=== PATIENT | female | born 1960 | race Caucasian/White ===

== ENCOUNTER → 2019-03-18 | Outpatient (CLI) | payer BC ==
--- NOTE | 2019-03-18 16:48 | CONS ---
CONSULTATION REASON FOR CONSULTATION: Sleep apnea. This is a 58-year-old female patient, referred to me for evaluation of obstructive sleep apnea. The patient lives in [place] and she works in [place]. 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 She is having difficulties in maintaining good sleep quality. She goes to bed around 10 p.m., wakes up at 7 a.m. in the morning. She feels that she is not sleeping more than 4 hours. Her sleep quality is poor and she has snoring and she quits breathing at night, as she has been told by her bed partner. She has been waking up tired and sleepy during the day, and she has problems with memory and concentration. Her current [place] score is 20. No recent weight gain. No substance abuse. She has a history of depression; currently it is inactive and it is well treated. No sleep paralysis. No hallucinations. No cataplexy. No parasomnia. No substance abuse. She is a chronic smoker. PAST MEDICAL HISTORY: 1. Depression. 2. Anxiety. 3. Hyperlipidemia. 4. Sciatica. 5. Stress urinary incontinence. 6. Reflux. SURGICAL HISTORY: Surgical history includes: 1. Carpal tunnel release. 2. Cholecystectomy. 3. Hysterectomy. DRUG ALLERGIES: PEANUTS. OUTPATIENT MEDICATION LIST: Outpatient medication list includes: 1. Gabapentin 100 mg p.o. daily. 2. Baclofen 10 mg p.o. daily. 3. Nexium 20 mg p.o. daily. 4. Rajni aspirin 81 mg p.o. daily. 5. Claritin 10 mg p.o. daily. 6. Pravastatin 10 mg p.o. daily. 7. Lexapro 20 mg p.o. daily. 8. Oxybutynin 20 mg p.o. daily. 9. BuSpar 10 mg p.o. t.i.d. SOCIAL HISTORY: The patient smokes one pack of cigarettes a day. Twenty pack/year smoking history is present. No history of alcoholism. No history of IV drugs. FAMILY HISTORY: Positive for CHF in mother. [place] in the father. REVIEW OF SYSTEMS: Fourteen-point review of systems was done. Positive findings were all mentioned above in the history of present illness. The patient has no history of any motor vehicle accident because of feeling drowsy or sleepy. She is able to drive long distances without having to fall asleep. She gets very tired, however. She sleeps on her side and stomach. She watches TV in the bedroom. She may take a nap after coming back from work at around 4 p.m.; however, this is not a common occurrence. She wakes up and her sleep is quite fragmented. No unusual behavior or movements at nighttime. PHYSICAL EXAMINATION: VITAL SIGNS: BP is 124/76, pulse 96, respirations 16, temperature 98.2, saturation 97% on room air. Height is 5 feet 4 inches, weight 197, BMI 32.7. Neck size is 15 inches. GENERAL APPEARANCE: Calm, comfortable. HEAD: Atraumatic normocephalic. NECK: Supple. There is no JVD. No goiter or neck mass. Mallampati class IV. LUNGS: Clear to auscultation. HEART: Heart sounds are regular rate and rhythm. Normal S1, S2. No S3, S4. No murmurs. ABDOMEN: Soft, nontender. No organomegaly. EXTREMITIES: No edema. No cyanosis or clubbing. NEUROLOGIC: She is awake and alert. No focal neurological deficit. IMPRESSION: 1. Chronic hypersomnia with [place] score of 20. Rule out underlying obstructive sleep apnea, especially since the patient has been told that she snores and quits breathing. 2. Chronic anxiety. 3. Chronic depression. 4. Hyperlipidemia. 5. Sciatica. 6. Stress urinary incontinence. 7. Reflux. PLAN: Continue same medication and proceed with a home sleep study to investigate the patient for any sleep breathing disorder. Will make further recommendations based on results of the sleep study. MMODL / IJN: [id number] /
== END | disposition home or self-care (01) ==
LOC: SLEEP 13:17
PROVIDERS: ATTEND Internal Medicine Critical Care Medicine
DX: G47.10 Hypersomnia, unspecified (principal); F41.8 Other specified anxiety disorders; E78.5 Hyperlipidemia, unspecified; M54.30 Sciatica, unspecified side; N39.3 Stress incontinence (female) (male); K21.9 Gastro-esophageal reflux disease without esophagitis; F17.210 Nicotine dependence, cigarettes, uncomplicated; Z79.82 Long term (current) use of aspirin; Z79.899 Other long term (current) drug therapy; Z91.010 Allergy to peanuts
CPT/HCPCS: 99211

== ENCOUNTER → 2019-07-01 | Outpatient (CLI) | payer BC ==
--- NOTE | 2019-07-01 18:24 | PN ---
PROGRESS NOTE SLEEP CENTER PROGRESS NOTE: This patient was diagnosed having mild obstructive sleep apnea, positional, with an AHI of 6. She was quite somnolent and sleepy and she had carried an [place] score of 20. She has hyperlipidemia and a history of stress urinary incontinence. I offered the patient an APAP and her current setting is at a minimum pressure of 5 and a maximum pressure of 15. She is coming in for a compliancy check. She feels better. Her sleep quality has improved. She is waking up much more alert and refreshed during the day. She is using a full-face mask. On today's evaluation, I offered her an AirFit F20 small-sized mask. Based on the compliance data over the past 30 days, the patient has been averaging around 4.3 hours of CPAP use per night. Her CPAP use for more than 4 hours is around 70%. She has utilized her CPAP machine every night. Her average pressure utilized is around 13.6 with a leak of 66 L/minute and her AHI is down to 3.4. She has no specific complaints otherwise, and she states that she is benefitting from the treatment. REVIEW OF SYSTEMS: Fourteen-point review of systems was done. Positive findings were all mentioned above in the history of present illness. PHYSICAL EXAMINATION: VITAL SIGNS: BP is 119/76, pulse 100, respirations 16, temperature 98.4, saturation 97% on room air. Weight is 200. GENERAL APPEARANCE: Calm, comfortable. HEAD: Atraumatic, normocephalic. NECK: Supple. There is no JVD. No goiter or neck mass. Mallampati class IV. LUNGS: Clear to auscultation. HEART: Heart sounds are regular rate and rhythm. Normal S1, S2. No S3, S4. No murmurs. ABDOMEN: Soft, nontender. No organomegaly. EXTREMITIES: No edema. No cyanosis or clubbing. NEUROLOGIC: Alert and oriented x3. There are no focal neurological deficit. PSYCHIATRIC: Negative for anxiety or depression. IMPRESSION: 1. Symptomatic obstructive sleep apnea, mild, positional; apnea/hypopnea index of 6. Worse in the supine body position. 2. Chronic hypersomnia. [place] score of 20. Improving with CPAP therapy. 3. Chronic hyperlipidemia. 4. Chronic anxiety/depression. 5. History of stress urinary incontinence. 6. Sciatica. 7. History of acid reflux. PLAN: 1. I offered this patient CPAP therapy in the form of APAP, minimum of 5, maximum of 15. 2. Compliance data was checked and the numbers are adequate. 3. Offer this patient an AirFit F20 small-sized full-face mask. 4. Implement good sleep hygiene measures and see me back in a year's time in followup. MMMARIA / EVAN: [id number] /
== END | disposition home or self-care (01) ==
LOC: SLEEP 14:25
PROVIDERS: ATTEND Internal Medicine Critical Care Medicine
DX: G47.33 Obstructive sleep apnea (adult) (pediatric) (principal); G47.19 Other hypersomnia; E78.49 Other hyperlipidemia; M54.30 Sciatica, unspecified side; Z87.448 Personal history of other diseases of urinary system; Z87.19 Personal history of other diseases of the digestive system

== ENCOUNTER → 2022-10-25 | Outpatient (CLI) | payer BC ==
--- NOTE | 2022-10-11 17:25 | P.BASOAP ---
Subjective Progress Note Date: 10/11/22 Patient left without being seen. Assessment/Plan Plan: Date: Initial Weight: Initial BMI: Current Weight: Current BMI: Type of Surgery: Total Volume in Band: Previous Volume: Volume Removed: Volume Added: Band Size:
[2022-10-25 15:44] VITALS: BP 102/58; PULSE 89; TEMP 98; BMI 37.2
--- NOTE | 2022-10-25 16:15 | P.HPBAR ---
Bariatric H&P - History & Physicial H&P Date: 10/25/22 History & Physicial: Visit/CC: new patient Patient initial contact: Initial weight: Initial weight in pounds: Height: 5 ft 4 in Initial BMI: Last weight: Current weight: 98.43 kg Current weight in pounds: 217.00 Current BMI: 37.2 [place] body weight (based on NIH guidelines): 54.431 kg Excess body weight loss: The patient is a 62 year-old F who presents for Bariatric Assessment. Sleeve gastrectomy. Tried calorie counting, carbs low. She has tried adipex in the past with side effects. She is walking with minimal weight. Highest weight 220 pounds. Has heartburn all the tome. SHe had EGD many years. She had an ulcer. No smokig around her. No moderate dyshagia. No gallbladder. She is due for colonoscopy. EGD and colon advised with prep advised. She needs medical supervised weight loss. Recommend EGD colon. Risk for reflux. back pain, left knee pain, both hips and ankles. Past Medical History Past Medical History: Asthma, Osteoarthritis (OA), Sleep Apnea/CPAP/BIPAP Additional Past Medical History / Comment(s): uses CPAP History of Any Multi-Drug Resistant Organisms: None Reported Past Surgical History: Cholecystectomy, Hysterectomy, Tubal Ligation Additional Past Surgical History / Comment(s): carpal tunnel surg nancy wrists Past Anesthesia/Blood Transfusion Reactions: No Reported Reaction Past Psychological History: Anxiety, Depression Smoking Status: Former smoker, Vaper Past Alcohol Use History: None Reported Additional Past Alcohol Use History / Comment(s): Quit cigarette smoking Jun 2022, currently vaping nicotine Past Drug Use History: None Reported Surgical - Exam Vital Signs Temp Pulse BP 98 F 89 102/58 10/25/22 15:39 10/25/22 15:39 10/25/22 15:39 Bariatric Checklist Checklist: Plan: Checklist: EGD: 1. Hiatal hernia: 2. H. Pylori: HgbA1c: Vitamin D: Smoking: Primary care physician referral: Terri Page NP Psychiatry clearance: Cardiology clearance: Sleep study: Diet journal: VTE risk score: VTE risk level: Rehab needs at discharge:
== END ==
LOC: BARWHC3 10-11 14:24
PROVIDERS: ATTEND Surgery Plastic and Reconstructive Surgery
DX: E66.01 Morbid (severe) obesity due to excess calories (principal); J45.909 Unspecified asthma, uncomplicated; M19.90 Unspecified osteoarthritis, unspecified site; Z87.891 Personal history of nicotine dependence; Z68.37 Body mass index [BMI] 37.0-37.9, adult
CPT/HCPCS: 99202